=== PATIENT | female | born 1980 | race Caucasian/White ===

== ENCOUNTER 2017-04-23 21:29 | Emergency (ER) | payer MEDICAID ==
[~2017-04-23] VITALS: Ht 162.6 cm; Wt 61.2 kg
[2017-04-23] MEDS ORDERED: VENTOLIN HFA 90 MCG INHALER (21:56)
--- NOTE | 2017-04-23 23:18 | NUR ---
Patient discharged to home in stable conditon. Written and verbal after care instructions given. Patient verbalizes understanding of instructions.
== END 2017-04-23 23:19 | disposition home or self-care (01) ==
LOC: ER 21:30
DX: M76.30 Iliotibial band syndrome, unspecified leg (principal)
CPT/HCPCS: 99281; A4663